=== PATIENT | female | born 1990 | race African-American/Black ===

== ENCOUNTER 2019-04-10 08:27 | Emergency (ER) | payer MEDICAID ==
[~2019-04-10] VITALS: Ht 170.2 cm; Wt 82.0 kg
[2019-04-10] MEDS: ONDANSETRON HCL 4MG/2ML INJ IV STA (10:44)
[2019-04-10] MEDS: KETOROLAC 30MG/ML VIAL IV STA (10:44)
[2019-04-10] MEDS: SODIUM CHLORIDE 0.9% 1,000 ML IV ONE (10:44)
[2019-04-10 11:04] LABS: BASOPHILS % 0.5 % (0.0-2.0); HEMATOCRIT. 43.4 % (36.0-48.0); HEMOGLOBIN. 14.7 g/dL (12.0-16.0); LYMPHOCYTES % 20.4 % (20.0-50.0); MEAN CORPUSCULAR HEMOGLOBIN 29.9 pg (28.0-32.0); MEAN CORPUSCULAR VOLUME 88.5 fL (81.0-99.0); MEAN PLATELET VOLUME 9.5 fl (7.4-10.4); MONOCYTES % 13.2 % (2.0-8.0); NEUTROPHILS % 65.9 % (40.0-76.0); PLATELET 177 x1000/uL (130-400); RED CELL DISTRIBUTION WIDTH 13.3 % (11.6-14.6)
[2019-04-10 11:11] LABS: CHLORIDE 102 mEq/L (98-107)
[2019-04-10 11:14] LABS: ETHANOL BLOOD < 10 mg/dL
[2019-04-10] MEDS: FAMOTIDINE 20MG/2ML VIAL IV STA (11:37)
[2019-04-10 11:48] LABS: CLARITY URINE CLEAR (CLEAR); COLOR URINE YELLOW (YELLOW); KETONES URINE NEGATIVE (NEGATIVE); LEUKOCYTE ESTERASE URINE NEGATIVE (NEGATIVE); NITRITE URINE NEGATIVE (NEGATIVE); OCCULT BLOOD URINE TRACE (NEGATIVE); PH URINE 5.5 (4.5-8.0); PROTEIN URINE TRACE (NEGATIVE); SPECIFIC GRAVITY URINE 1.014 (1.005-1.030); UROBILINOGEN URINE 0.2 E.U./dL (0.2-1.0)
[2019-04-10 12:55] VITALS: BP 122/78
== END 2019-04-10 14:14 | disposition home or self-care (01) ==
LOC: ER 08:27
DX: K52.9 Noninfective gastroenteritis and colitis, unspecified (principal); M79.10 Myalgia, unspecified site
CPT/HCPCS: 36415; 80053; 80320; 81003; 81025; 83690; 85025; 85610; 96361; 96374; 96375; 99283; J1885; J2405; J3490; J7030; Z7610; G0480